=== PATIENT | female | born 1945 | race Caucasian/White ===

== ENCOUNTER 2020-09-27 16:06 | Emergency (ER) | payer MEDICARE ==
[2020-09-27] MEDS ORDERED: DICLOFENAC SODI75 MG PO (18:15)
== END 2020-09-27 18:42 | disposition home or self-care (01) ==
LOC: FER 16:06
DX: M19.012 Primary osteoarthritis, left shoulder (principal); M54.42 Lumbago with sciatica, left side; E11.9 Type 2 diabetes mellitus without complications; I10 Essential (primary) hypertension; Z88.8 Allergy status to other drugs, medicaments and biological substances; Z91.040 Latex allergy status
CPT/HCPCS: 73030

== ENCOUNTER 2021-05-09 07:28 | Emergency (ER) | payer MEDICARE ==
[~2021-05-09 07:28] MED LIST: DICLOFENAC SODI75 MG PO
[2021-05-09 09:11] LABS: ALBUMIN 2.7 g/dL (3.4-5.0); BILIRUBIN - TOTAL 0.7 mg/dL (0.2-1.0); BUN/CREAT RATIO (CALC) 16.1 RATIO; CREATININE 0.93 mg/dL (0.51-0.95); GLOBULIN (CALCULATION) 4.1 g/dL; POTASSIUM 3.7 mmol/L (3.5-5.1); TOTAL PROTEIN 6.8 g/dL (6.4-8.2)
[2021-05-09 09:13] LABS: BASOPHIL 0.3 % (0-2); EOSINOPHIL 2.7 % (0-7); HCT 37.6 % (37.0-47.0); HGB 12.4 g/dl (12.5-16.0); LYMPHOCYTE 22.4 % (15-48); MCH 29.8 pg (25.0-31.0); MCV 90.4 fL (78.0-100.0); MONOCYTE 9.2 % (0-12); NEUTROPHIL 65.2 % (41-80); NRBC 0; RBC 4.16 M/uL (4.20-5.40); RDW 14.3 % (11.5-14.0); WBC 8.8 K/uL (4.0-10.5)
[2021-05-09 09:46] LABS: BILIRUBIN NEGATIVE (NEGATIVE); BLOOD NEGATIVE Ery/uL (NEGATIVE); CLARITY CLEAR (CLEAR); COLOR YELLOW (YELLOW); GLUCOSE (U) NORMAL (NORMAL); LEUKOCYTES NEGATIVE Leu/uL (NEGATIVE); NITRITE NEGATIVE (NEGATIVE); PROTEIN NEGATIVE (NEGATIVE); SPECIFIC GRAVITY >=1.030 (1.001-1.030); UROBILINOGEN 0.2 mg/dL (0.2-1.0); pH 5.5 (5.0-9.0)
[2021-05-09 09:56] LABS: PLT 166 K/uL (150-400)
[2021-05-09] MEDS ORDERED: IMODIUM2 MG PO (13:12)
[2021-05-09] MEDS ORDERED: BENTYL10 MG PO (13:12)
[2021-05-09] MEDS ORDERED: ONDANSETRON ODT4 MG PO (13:12)
== END 2021-05-09 13:59 | disposition home or self-care (01) ==
LOC: FER 07:28
PROVIDERS: Emergency Medicine
DX: K52.9 Noninfective gastroenteritis and colitis, unspecified (principal); I10 Essential (primary) hypertension; I25.10 Atherosclerotic heart disease of native coronary artery without angina pectoris; Z88.8 Allergy status to other drugs, medicaments and biological substances; Z20.822 Contact with and (suspected) exposure to COVID-19
CPT/HCPCS: 36415; 71045; 80053; 81003; 84484; 85025; 93005; J2405; J7030; U0002